=== PATIENT | female | born 1995 | race Caucasian/White ===

== ENCOUNTER 2024-04-19 19:02 | Inpatient (IN) | payer OTHER ==
[~2024-04-19] VITALS: Ht 157.5 cm; Wt 2.7 kg
[2024-04-19 19:23] VITALS: BP 107/73
[2024-04-19] MEDS ORDERED: PRENATAL TABLE1 EAC1 PO (20:37)
[2024-04-19 20:43] LABS: HEMATOCRIT 34.5 % (36.0-45.00); HEMOGLOBIN 11.6 g/dL (12.0-15.00); MEAN CELL VOLUME 87.6 fL (80.00-100.00); MEAN CORPUSCULAR HEMOGLOBIN 29.3 pg (27.00-32.0); MEAN CORPUSCULAR HGB CONC 33.5 g/dl (32.0-36.0); PLATELET COUNT 176 K/uL (150-450); RED BLOOD COUNT 3.94 M/uL (4.00-6.00); RED CELL DISTRIBUTION WIDTH 13.3 % (11.5-14.5)
[2024-04-19 20:44] LABS: URINE APPEARANCE Clear; URINE BACTERIA 2815.6 uL (0.0-1933); URINE BILIRRUBIN Negative (NEGATIVE); URINE BLOOD Negative; URINE COLOR Yellow; URINE EPITHELIAL CELLS 27.4 uL (0.0-38.8); URINE GLUCOSE Negative (NEGATIVE); URINE KETONE Negative (NEGATIVE); URINE LEUKOCYTE Negative; URINE NITRATE Negative; URINE PROTEIN Negative (NEGATIVE); URINE WBC 21.6 uL (0.0-23.2)
[2024-04-19] MEDS ORDERED: RINGERS SOLUTION,LACTATED 1,000 ML IV SCH ×2 (20:45→22:45)
[2024-04-19 21:00] LABS: URINE RBC 1.9 uL (0.0-20.8)
[2024-04-19] MEDS ORDERED: KETOROLAC TROMETHAMINE 60 MG VIAL IM STA (22:40)
[2024-04-19] MEDS ORDERED: PROMETHAZINE HCL 25 MG/ML AMPUL IM PRN (22:45)
[2024-04-19] MEDS ORDERED: MEPERIDINE HCL/PF 50 MG/ML VIAL IM PRN (22:45)
[2024-04-19] MEDS ORDERED: CHLORHEXIDINE GLUCONATE 120 ML BOTTLE TP ONE (22:45)
[2024-04-19] MEDS ORDERED: OXYTOCIN 1,000 ML IV SCH (22:45)
[2024-04-19 23:21] LABS: INR < 0.93; PARTIAL THROMBOPLASTIN TIME 27.1 SECONDS (22.0-34.0); PROTHROMBIN TIME 10.2 SECONDS (9.0-11.5)
[2024-04-19] MEDS ORDERED: ERYTHROMYCIN BASE OPHT 1GM EACH TUBE OP ONE (23:45)
[2024-04-19] MEDS ORDERED: CEFAZOLIN SODIUM 1,000 MG VIAL IV ONE (23:45)
[2024-04-19] MEDS ORDERED: OXYTOCIN 20 UNITS/1000ML RL PIGGYBAG IV ONE (23:45)
[2024-04-20 01:13] VITALS: BP 137/80
[2024-04-20] MEDS ORDERED: CEFAZOLIN SODIUM 1,000 MG VIAL IV SCH (02:00)
[2024-04-20 03:21] LABS: HEMATOCRIT 32.5 % (36.0-45.00); MEAN CELL VOLUME 88.2 fL (80.00-100.00); MEAN CORPUSCULAR HEMOGLOBIN 29.8 pg (27.00-32.0); MEAN CORPUSCULAR HGB CONC 33.8 g/dl (32.0-36.0); PLATELET COUNT 158 K/uL (150-450); RED BLOOD COUNT 3.69 M/uL (4.00-6.00); RED CELL DISTRIBUTION WIDTH 13.1 % (11.5-14.5)
[2024-04-20 07:59] VITALS: BP 133/85
[2024-04-20] MEDS ORDERED: OxyCODONE HCL/APAP UD (PERCOCET) PO PRN (09:00)
[2024-04-20 15:25] VITALS: BP 112/74
[2024-04-20] MEDS ORDERED: IBUprofen 600 MG TABLET PO PRN (22:45)
[2024-04-21 01:28] VITALS: BP 121/81
[2024-04-21 08:00] VITALS: BP 111/74
[2024-04-21 16:00] VITALS: BP 117/80
[2024-04-22 01:14] VITALS: BP 124/86
[2024-04-22 08:00] VITALS: BP 119/80
== END 2024-04-22 14:02 | disposition home or self-care (01) | DRG 788 ==
LOC: OBS/DEL 19:02 → O/R 21:07 → OB/GYN 21:07 → LDR 21:07 → O/R 21:58 → OB/GYN 23:39
PROVIDERS: ADMIT Obstetrics & Gynecology; ATTEND Obstetrics & Gynecology
PROC: 4A1HXCZ Monitoring of Products of Conception, Cardiac Rate, External Approach (ICD-10-PCS; 2024-04-19)
PROC: 10D00Z1 Extraction of Products of Conception, Low, Open Approach (ICD-10-PCS; principal; 2024-04-19 23:00)
DX: O36.8330 Maternal care for abnormalities of the fetal heart rate or rhythm, third trimester, not applicable or unspecified (principal); Z3A.38 38 weeks gestation of pregnancy; Z37.0 Single live birth; Z20.822 Contact with and (suspected) exposure to COVID-19